=== PATIENT | female | born 1995 | race Two or more races ===

== ENCOUNTER 2020-12-27 16:52 | Emergency (ER) | payer BC ==
[~2020-12-27] VITALS: Ht 160 cm; Wt 83.9 kg
--- NOTE | 2020-12-27 17:00 | NUR ---
25 yrs female waking in with bited by humen bite on lt medile finger 1/2 on medile helder finge gone skin lauceration seen by DR. ROSAS order was given x ray done no fx clean and souked finger with ns and bitadind clean done
[2020-12-27] MEDS ORDERED: NEOMY/BACITRA/POLYMYXIN B OINT UD PACKET TP ONE ×2 (17:15→17:45)
[2020-12-27] MEDS ORDERED: TDAP DIPH,PERTUSS,TET VAC/PF 0.5 ML DISP.SYRIN IM ONE ×2 (17:15→17:45)
[2020-12-27] MEDS ORDERED: IBUPROFEN 800 MG TABLET PO ONE (17:30)
[2020-12-27] MEDS ORDERED: AMOX-430 PO (17:37)
[2020-12-27] MEDS ORDERED: AMOXICILLIN-CLAVUL 875-125MG TABLET PO ONE (17:45)
[2020-12-27] MEDS ORDERED: AMOXICILLIN-CLAVUL 875-125MG TABLET ONE (17:57)
[2020-12-27] MEDS ORDERED: IBUPROFEN 800 MG TABLET ONE (17:57)
--- NOTE | 2020-12-27 18:23 | NUR ---
Wound cleaned dressing intact and dry d/c instraction and RX GIVEN TO PT FULLY AND VERBLIZED understood d/c home with rx
[2020-12-27 18:28] VITALS: BP 120/63
== END 2020-12-27 18:30 | disposition home or self-care (01) ==
LOC: ER 16:54
DX: S61.353A Open bite of left middle finger with damage to nail, initial encounter (principal); W50.3XXA Accidental bite by another person, initial encounter; Y92.89 Other specified places as the place of occurrence of the external cause
CPT/HCPCS: 73140; 90715; A4663